=== PATIENT | male | born 1960 | race Caucasian/White ===

== ENCOUNTER → 2016-11-03 | Outpatient (REF) | payer SELFPAY ==
[2016-11-03 18:19] LABS: ALBUMIN 3.9 GM/DL (3.2-5.2); ALBUMIN/GLOBULIN RATIO 1.26 (1.00-1.93); ALKALINE PHOSPHATASE 104 U/L (45-117); ALT/SGPT 22 U/L (12-78); ANION GAP 8 MEQ/L (8-16); AST/SGOT 13 U/L (15-37); BILIRUBIN,TOTAL 0.3 MG/DL (0.2-1.0); BLOOD UREA NITROGEN 18 MG/DL (7-18); CALCIUM LEVEL 8.7 MG/DL (8.5-10.1); CARBON DIOXIDE LEVEL 28 MEQ/L (21-32); CHLORIDE LEVEL 104 MEQ/L (98-107); CREATININE FOR GFR 0.74 MG/DL (0.70-1.30); GLOMERULAR FILTRATION RATE > 60.0 (>56); GLUCOSE, FASTING 81 MG/DL (70-105); POTASSIUM SERUM 4.6 MEQ/L (3.5-5.1); SODIUM LEVEL 140 MEQ/L (136-145)
== END | disposition home or self-care (01) ==
LOC: M SFHCPLAZ 14:44
PROVIDERS: ATTEND Nurse Practitioner Family
DX: Z85.47 Personal history of malignant neoplasm of testis (principal); I10 Essential (primary) hypertension

== ENCOUNTER → 2017-12-13 | Outpatient (REF) | payer OTHER ==
[2017-12-13 17:28] LABS: ESTIMATED AVERAGE GLUCOSE 120 MG/DL (60-110); HEMOGLOBIN A1c 5.8 %
[2017-12-13 17:47] LABS: ALBUMIN 4.2 GM/DL (3.2-5.2); ALBUMIN/GLOBULIN RATIO 1.31 (1.00-1.93); ALKALINE PHOSPHATASE 104 U/L (45-117); ALT/SGPT 26 U/L (12-78); ANION GAP 6 MEQ/L (8-16); AST/SGOT 20 U/L (7-37); BILIRUBIN,TOTAL 0.6 MG/DL (0.2-1.0); BLOOD UREA NITROGEN 17 MG/DL (7-18); CALCIUM LEVEL 8.8 MG/DL (8.5-10.1); CARBON DIOXIDE LEVEL 30 MEQ/L (21-32); CHLORIDE LEVEL 100 MEQ/L (98-107); CHOLESTEROL LEVEL 155 MG/DL (<200); GLOMERULAR FILTRATION RATE > 60.0 (>56); GLUCOSE, FASTING 90 MG/DL (70-100); HDL CHOLESTEROL 41 MG/DL (>40); LDL CHOLESTEROL 97.6 MG/DL (<100); NON-HDL-C 114 MG/DL; POTASSIUM SERUM 4.5 MEQ/L (3.5-5.1); PSA SCREENING 2.37 NG/ML (< 4.0); SODIUM LEVEL 136 MEQ/L (136-145); TOTAL PROTEIN 7.4 GM/DL (6.4-8.2); TRIGLYCERIDES LEVEL 82 MG/DL (<150)
[2017-12-15 08:16] LABS: HCG SERUM TUMOR MARKER QUANT < 1 mIU/mL (0-3)
[2017-12-15 10:58] LABS: ALPHA FETOPROTEIN TUMOR QUANT 2.3 NG/ML (<8.1)
== END ==
LOC: M SFHCPLAZ 15:25
DX: Z85.47 Personal history of malignant neoplasm of testis (principal); I10 Essential (primary) hypertension; Z12.5 Encounter for screening for malignant neoplasm of prostate; Z12.11 Encounter for screening for malignant neoplasm of colon
CPT/HCPCS: 83036

== ENCOUNTER → 2019-01-02 | Outpatient (REF) | payer OTHER ==
[2019-01-02 12:02] LABS: MALB URINE SIEMENS 20.7 MG/L; MAU/CREAT RATIO 17.5 MCG/MG (0.0-30.0)
[2019-01-02 12:07] LABS: HEMOGLOBIN A1c 5.9 %
[2019-01-02 12:15] LABS: ALBUMIN 4.2 GM/DL (3.2-5.2); ALT/SGPT 22 U/L (12-78); BILIRUBIN,TOTAL 0.5 MG/DL (0.2-1.0); BLOOD UREA NITROGEN 25 MG/DL (7-18); CARBON DIOXIDE LEVEL 27 MEQ/L (21-32); CHLORIDE LEVEL 101 MEQ/L (98-107); CHOLESTEROL LEVEL 147 MG/DL (<200); CREATININE FOR GFR 0.82 MG/DL (0.70-1.30); GLOMERULAR FILTRATION RATE > 60.0 (>56); GLUCOSE, FASTING 131 MG/DL (70-100); HDL CHOLESTEROL 35 MG/DL (>40); LDL CHOLESTEROL 99 MG/DL (<100); NON-HDL-C 112 MG/DL; POTASSIUM SERUM 4.5 MEQ/L (3.5-5.1); SODIUM LEVEL 135 MEQ/L (136-145); TOTAL PROTEIN 7.3 GM/DL (6.4-8.2); TRIGLYCERIDES LEVEL 67 MG/DL (<150)
== END ==
LOC: M SFHCPLAZ 08:24
PROVIDERS: ATTEND Nurse Practitioner Family
DX: Z12.5 Encounter for screening for malignant neoplasm of prostate (principal); I10 Essential (primary) hypertension; R73.03 Prediabetes; Z85.47 Personal history of malignant neoplasm of testis

== ENCOUNTER → 2021-05-21 | Outpatient (CLI) | payer OTHER ==
[2021-05-21 13:26] LABS: HEMOGLOBIN A1c 5.7 %
[2021-05-21 13:38] LABS: ALBUMIN 3.9 GM/DL (3.2-5.2); ALT/SGPT 24 U/L (12-78); BILIRUBIN,TOTAL 0.6 MG/DL (0.2-1.0); BLOOD UREA NITROGEN 15 MG/DL (7-18); CALCIUM LEVEL 8.9 MG/DL (8.8-10.2); CARBON DIOXIDE LEVEL 29 MEQ/L (21-32); CHLORIDE LEVEL 104 MEQ/L (98-107); CHOLESTEROL LEVEL 158 MG/DL (<200); CHOLESTEROL RISK RATIO 4.514 (<5); CREATININE FOR GFR 0.75 MG/DL (0.70-1.30); GLOMERULAR FILTRATION RATE > 60.0 (>49); GLUCOSE, FASTING 102 MG/DL (70-100); HDL CHOLESTEROL 35 MG/DL (>40); LDL CHOLESTEROL 107 MG/DL (<100); NON-HDL-C 123 MG/DL; POTASSIUM SERUM 4.6 MEQ/L (3.5-5.1); SODIUM LEVEL 138 MEQ/L (136-145); TOTAL PROTEIN 6.8 GM/DL (6.4-8.2); TRIGLYCERIDES LEVEL 78 MG/DL (<150)
[2021-05-21 13:55] LABS: MALB URINE SIEMENS 21.6 MG/L; MAU/CREAT RATIO 23.4 MCG/MG (0.0-30.0)
== END ==
LOC: M PLALAB 11:23
PROVIDERS: ATTEND Nurse Practitioner Family
DX: I10 Essential (primary) hypertension (principal)

== ENCOUNTER → 2022-07-01 | Outpatient (CLI) | payer OTHER ==
[2022-07-01 13:33] LABS: BASO # 0.1 10^3/uL (0.0-0.2); BASO % 1.5 % (0.0-1.0); EOS # 0.7 10^3/uL (0.0-0.5); EOS % 8.9 % (0.0-3.0); HEMATOCRIT 53.7 % (42.0-52.0); HEMOGLOBIN 17.7 g/dl (13.5-17.5); LYMPH # 2.1 10^3/uL (1.5-5.0); LYMPH % 27.7 % (24.0-44.0); MEAN CORPUSCULAR HEMOGLOBIN 30.2 pg (27.0-33.0); MEAN CORPUSCULAR VOLUME 91.6 fl (80.0-96.0); MONO # 0.8 10^3/uL (0.0-0.8); MONO % 10.5 % (2.0-8.0); NEUTROPHILS # 3.8 10^3/uL (1.5-8.5); PLATELET COUNT, AUTOMATED 319 10^3/uL (150-450); RED BLOOD COUNT 5.86 10^6/uL (4.30-6.10); WHITE BLOOD COUNT 7.5 10^3/uL (4.0-10.0)
[2022-07-01 14:38] LABS: ALT/SGPT 24 U/L (12-78); BILIRUBIN,TOTAL 0.5 MG/DL (0.2-1.0); BLOOD UREA NITROGEN 25 MG/DL (7-18); CALCIUM LEVEL 9.1 MG/DL (8.8-10.2); CARBON DIOXIDE LEVEL 30 MEQ/L (21-32); CHLORIDE LEVEL 100 MEQ/L (98-107); CREATININE FOR GFR 0.74 MG/DL (0.70-1.30); GLOMERULAR FILTRATION RATE > 60.0 (>49); GLUCOSE, FASTING 117 MG/DL (70-100); LDH LACTATE DEHYDROGENASE 131 U/L (87-241); POTASSIUM SERUM 4.5 MEQ/L (3.5-5.1); SODIUM LEVEL 133 MEQ/L (136-145); TOTAL PROTEIN 7.5 GM/DL (6.4-8.2)
[2022-07-01 15:28] LABS: HEMOGLOBIN A1c 5.8 %
== END ==
LOC: M PLALAB 09:35
PROVIDERS: ATTEND Nurse Practitioner Family
DX: I10 Essential (primary) hypertension (principal); Z12.5 Encounter for screening for malignant neoplasm of prostate; Z85.47 Personal history of malignant neoplasm of testis

== ENCOUNTER → 2023-01-09 | Outpatient (CLI) | payer OTHER ==
[2023-01-10 17:07] LABS: PSA % FREE 19.8 % (.); PSA FREE 1.01 ng/mL; PSA TOTAL 5.1 ng/mL (0.0-4.0)
== END ==
LOC: M PLALAB 09:01
PROVIDERS: ATTEND Urology
DX: R97.20 Elevated prostate specific antigen [PSA] (principal)

== ENCOUNTER → 2023-01-09 | Outpatient (CLI) | payer OTHER ==
[2023-01-09 14:35] LABS: ALBUMIN 3.9 G/DL (3.2-5.2); ALKALINE PHOSPHATASE 98 U/L (46-116); ALT/SGPT 21 U/L (7.0-40); AST/SGOT 18 U/L (<34); BILIRUBIN,TOTAL 0.6 MG/DL (0.3-1.2); BLOOD UREA NITROGEN 14 MG/DL (9-23); CALCIUM LEVEL 8.9 MG/DL (8.3-10.6); CARBON DIOXIDE LEVEL 29 MMOL/L (20-31); CHLORIDE LEVEL 99 MMOL/L (98-107); CREATININE FOR GFR 0.65 MG/DL (0.70-1.30); GLOMERULAR FILTRATION RATE > 60.0 (>49); GLUCOSE, FASTING 97 MG/DL (74-106); POTASSIUM SERUM 5.4 MMOL/L (3.5-5.1); SODIUM LEVEL 133 MMOL/L (136-145)
[2023-01-09 18:57] LABS: TOTAL PROTEIN 7.1 G/DL (5.7-8.2)
== END ==
LOC: M PLALAB 09:02
PROVIDERS: ATTEND Nurse Practitioner Family
DX: I10 Essential (primary) hypertension (principal)

== ENCOUNTER → 2023-01-16 | Outpatient (CLI) | payer OTHER ==
[2023-01-16 10:47] LABS: BASO # 0.1 10^3/uL (0.0-0.2); BASO % 0.9 % (0.0-1.0); EOS # 0.5 10^3/uL (0.0-0.5); EOS % 5.7 % (0.0-3.0); HEMATOCRIT 50.9 % (42.0-52.0); HEMOGLOBIN 16.6 g/dl (13.5-17.5); LYMPH # 1.6 10^3/uL (1.5-5.0); LYMPH % 20.3 % (24.0-44.0); MEAN CORPUSCULAR HGB CONC 32.6 g/dl (32.0-36.5); MEAN CORPUSCULAR VOLUME 91.9 fl (80.0-96.0); MONO # 0.8 10^3/uL (0.0-0.8); NEUTROPHILS % 62.7 % (36.0-66.0); PLATELET COUNT, AUTOMATED 325 10^3/uL (150-450); RED BLOOD COUNT 5.54 10^6/uL (4.30-6.10)
[2023-01-16 10:55] LABS: BLOOD UREA NITROGEN 26 MG/DL (9-23); CALCIUM LEVEL 8.9 MG/DL (8.3-10.6); CARBON DIOXIDE LEVEL 32 MMOL/L (20-31); CHLORIDE LEVEL 102 MMOL/L (98-107); CHOLESTEROL LEVEL 158 MG/DL (<200); CHOLESTEROL RISK RATIO 4.56 (<5); CREATININE FOR GFR 0.73 MG/DL (0.70-1.30); GLOMERULAR FILTRATION RATE > 60.0 (>49); GLUCOSE, FASTING 115 MG/DL (74-106); HDL CHOLESTEROL 34.6 MG/DL (>40); LDL CHOLESTEROL 104.2 MG/DL (<100); NON-HDL-C 123.4 MG/DL; POTASSIUM SERUM 4.9 MMOL/L (3.5-5.1); SODIUM LEVEL 137 MMOL/L (136-145); TRIGLYCERIDES LEVEL 96 MG/DL (<150)
[2023-01-16 11:03] LABS: URIC ACID 4.9 MG/DL (3.7-9.2)
[2023-01-16 11:15] LABS: HEMOGLOBIN A1c 5.8 % (4.0-6.0)
== END ==
LOC: M PLALAB 08:13
PROVIDERS: ATTEND Nurse Practitioner Family
DX: M70.21 Olecranon bursitis, right elbow (principal)

== ENCOUNTER → 2023-03-10 | Outpatient (REF) | payer OTHER | LOC: M SMT 13:07 | PROVIDERS: ATTEND Urology | DX: R97.20 Elevated prostate specific antigen [PSA] (principal) ==

== ENCOUNTER → 2023-09-25 | Outpatient (CLI) | payer OTHER ==
[2023-09-26 17:07] LABS: PSA TOTAL 3.5 ng/mL (0.0-4.0)
== END ==
LOC: M PLALAB 08:50
PROVIDERS: ATTEND Urology
DX: R97.20 Elevated prostate specific antigen [PSA] (principal)

== ENCOUNTER → 2024-01-24 | Outpatient (CLI) | payer OTHER ==
[2024-01-24 13:46] LABS: BASO # 0.1 10^3/uL (0.0-0.2); EOS # 0.6 10^3/uL (0.0-0.5); EOS % 7.8 % (0.0-3.0); HEMATOCRIT 47.2 % (42.0-52.0); HEMOGLOBIN 15.9 g/dl (13.5-17.5); LYMPH # 1.2 10^3/uL (1.5-5.0); LYMPH % 15.1 % (24.0-44.0); MEAN CORPUSCULAR HEMOGLOBIN 30.9 pg (27.0-33.0); MEAN CORPUSCULAR HGB CONC 33.7 g/dl (32.0-36.5); MEAN CORPUSCULAR VOLUME 91.7 fl (80.0-96.0); MONO # 1.2 10^3/uL (0.0-0.8); MONO % 15.1 % (2.0-8.0); NEUTROPHILS # 4.8 10^3/uL (1.5-8.5); NEUTROPHILS % 60.6 % (36.0-66.0); PLATELET COUNT, AUTOMATED 231 10^3/uL (150-450); RED BLOOD COUNT 5.15 10^6/uL (4.30-6.10); WHITE BLOOD COUNT 7.9 10^3/uL (4.0-10.0)
[2024-01-24 14:03] LABS: HEMOGLOBIN A1c 5.5 % (4.0-6.0)
[2024-01-24 14:22] LABS: ALBUMIN 3.6 G/DL (3.2-5.2); ALKALINE PHOSPHATASE 93 U/L (46-116); ALT/SGPT 24 U/L (7.0-40); AST/SGOT 16 U/L (<34); BILIRUBIN,TOTAL 0.7 MG/DL (0.3-1.2); BLOOD UREA NITROGEN 16 MG/DL (9-23); CALCIUM LEVEL 8.8 MG/DL (8.3-10.6); CARBON DIOXIDE LEVEL 26 MMOL/L (20-31); CHLORIDE LEVEL 102 MMOL/L (98-107); CHOLESTEROL LEVEL 155 MG/DL (<200); CHOLESTEROL RISK RATIO 4.51 (<5); CREATININE FOR GFR 0.64 MG/DL (0.70-1.30); GLOMERULAR FILTRATION RATE > 60.0 (>49); GLUCOSE, FASTING 102 MG/DL (74-106); HDL CHOLESTEROL 34.3 MG/DL (>40); LDL CHOLESTEROL 107.3 MG/DL (<100); NON-HDL-C 120.7 MG/DL; POTASSIUM SERUM 4.4 MMOL/L (3.5-5.1); SODIUM LEVEL 135 MMOL/L (136-145); TOTAL PROTEIN 6.8 G/DL (5.7-8.2); TRIGLYCERIDES LEVEL 67 MG/DL (<150)
== END ==
LOC: M PLALAB 09:02
PROVIDERS: ATTEND Nurse Practitioner Family
DX: I10 Essential (primary) hypertension (principal)

== ENCOUNTER → 2024-10-18 | Outpatient (CLI) | payer OTHER | LOC: M PLALAB 10:38 | PROVIDERS: ATTEND Urology | DX: R97.20 Elevated prostate specific antigen [PSA] (principal) ==

== ENCOUNTER → 2024-11-11 | Outpatient (CLI) | payer OTHER | LOC: M PLAIMG 07:11 | PROVIDERS: ATTEND Urology | DX: R97.20 Elevated prostate specific antigen [PSA] (principal) ==

== ENCOUNTER → 2025-05-15 | Outpatient (CLI) | payer MEDICARE ==
[2025-05-15 12:11] LABS: BASO # 0.1 10^3/uL (0.0-0.2); BASO % 0.9 % (0.0-1.0); EOS # 0.2 10^3/uL (0.0-0.5); EOS % 2.7 % (0.0-3.0); LYMPH # 1.8 10^3/uL (1.5-5.0); LYMPH % 23.4 % (24.0-44.0); MONO # 0.6 10^3/uL (0.0-0.8); MONO % 7.8 % (2.0-8.0); NEUTROPHILS # 5.1 10^3/uL (1.5-8.5); NEUTROPHILS % 64.7 % (36.0-66.0); PLATELET COUNT, AUTOMATED 351 10^3/uL (150-450)
[2025-05-15 12:44] LABS: FREE T4 1.25 NG/DL (0.89-1.76)
[2025-05-15 12:51] LABS: ALT/SGPT 15 U/L (7.0-40); AST/SGOT 15 U/L (<34); CALCIUM LEVEL 8.9 MG/DL (8.3-10.6); CARBON DIOXIDE LEVEL 30 MMOL/L (20-31); CHLORIDE LEVEL 106 MMOL/L (98-107); CHOLESTEROL LEVEL 179 MG/DL (<200); CHOLESTEROL RISK RATIO 5.94 (<5); CREATININE FOR GFR 0.80 MG/DL (0.70-1.30); GLOMERULAR FILTRATION RATE > 90.0 (>49); LDL CHOLESTEROL 133.9 MG/DL (<100); MAGNESIUM LEVEL 2.1 MG/DL (1.8-2.4); NON-HDL-C 148.9 MG/DL; POTASSIUM SERUM 4.8 MMOL/L (3.5-5.1); SODIUM LEVEL 146 MMOL/L (136-145); TRIGLYCERIDES LEVEL 75 MG/DL (<150)
[2025-05-15 13:16] LABS: ESTIMATED AVERAGE GLUCOSE 120.0 MG/DL (60-110)
== END ==
LOC: M PLALAB 09:05
PROVIDERS: ATTEND Nurse Practitioner Family
DX: I10 Essential (primary) hypertension (principal); E78.2 Mixed hyperlipidemia; R73.03 Prediabetes

== ENCOUNTER → 2025-05-21 | Outpatient (CLI) | payer MEDICARE | LOC: M RAD 07:32 | PROVIDERS: ATTEND Nurse Practitioner Family | DX: I10 Essential (primary) hypertension (principal); N28.1 Cyst of kidney, acquired ==

== ENCOUNTER → 2025-07-03 | Outpatient (CLI) | payer MEDICARE ==
[2025-07-07 13:57] LABS: PSA % FREE 23.0 % (calc) (>25); PSA FREE 1.3 ng/mL; PSA TOTAL 5.7 ng/mL (< OR = 4.0)
== END ==
LOC: M PLALAB 10:02
PROVIDERS: ATTEND Urology
DX: R97.20 Elevated prostate specific antigen [PSA] (principal)

== ENCOUNTER → 2025-07-03 | Outpatient (CLI) | payer MEDICARE ==
[2025-07-03 14:07] LABS: CALCIUM LEVEL 8.8 MG/DL (8.3-10.6); CARBON DIOXIDE LEVEL 28 MMOL/L (20-31); CHLORIDE LEVEL 103 MMOL/L (98-107); CREATININE FOR GFR 0.92 MG/DL (0.70-1.30); GLOMERULAR FILTRATION RATE > 90.0 (>49); POTASSIUM SERUM 4.4 MMOL/L (3.5-5.1); SODIUM LEVEL 136 MMOL/L (136-145)
== END ==
LOC: M PLALAB 09:59
PROVIDERS: ATTEND Nurse Practitioner Family
DX: I10 Essential (primary) hypertension (principal)